=== PATIENT | female | born 1965 | race Caucasian/White ===

== ENCOUNTER → 2016-09-30 | Outpatient (CLI) | payer MEDICARE, OTHER | LOC: EMI 15:37 | DX: M51.36 Other intervertebral disc degeneration, lumbar region (principal); M96.1 Postlaminectomy syndrome, not elsewhere classified; M48.06 Spinal stenosis, lumbar region; M54.41 Lumbago with sciatica, right side; M48.04 Spinal stenosis, thoracic region; M51.24 Other intervertebral disc displacement, thoracic region; M54.6 Pain in thoracic spine; M51.34 Other intervertebral disc degeneration, thoracic region | CPT/HCPCS: 72146; 72148 ==

== ENCOUNTER → 2016-10-16 | Outpatient (CLI) | payer MEDICARE, OTHER | LOC: US 13:55 | DX: I25.10 Atherosclerotic heart disease of native coronary artery without angina pectoris (principal); I25.118 Atherosclerotic heart disease of native coronary artery with other forms of angina pectoris; E53.8 Deficiency of other specified B group vitamins; E78.2 Mixed hyperlipidemia; F41.1 Generalized anxiety disorder; G89.4 Chronic pain syndrome; I10 Essential (primary) hypertension; I73.89 Other specified peripheral vascular diseases; M13.871 Other specified arthritis, right ankle and foot; M51.36 Other intervertebral disc degeneration, lumbar region; M54.16 Radiculopathy, lumbar region; N32.81 Overactive bladder; R07.89 Other chest pain; R10.11 Right upper quadrant pain; R23.8 Other skin changes; R30.0 Dysuria; R91.8 Other nonspecific abnormal finding of lung field | CPT/HCPCS: 93925 ==

== ENCOUNTER → 2020-08-21 | Outpatient (CLI) | payer MEDICARE, OTHER ==
[~2020-08-21] MED LIST: CEFUROXIME500 MG PO
== END ==
LOC: EXRD 08-17 11:00
DX: I73.9 Peripheral vascular disease, unspecified (principal)
CPT/HCPCS: 93922; 93925

== ENCOUNTER 2020-08-24 13:11 | Emergency (ER) | payer MEDICARE, OTHER ==
[2020-08-24] MEDS ORDERED: CEFUROXIME500 MG PO (16:21)
== END 2020-08-24 16:44 | disposition home or self-care (01) ==
LOC: ER1 13:11
DX: S50.02XA Contusion of left elbow, initial encounter (principal); N39.0 Urinary tract infection, site not specified; I51.9 Heart disease, unspecified; F17.200 Nicotine dependence, unspecified, uncomplicated; Z23 Encounter for immunization; Z88.8 Allergy status to other drugs, medicaments and biological substances; W19.XXXA Unspecified fall, initial encounter; Y92.009 Unspecified place in unspecified non-institutional (private) residence as the place of occurrence of the external cause
CPT/HCPCS: 73080; 81001; 90471; 90714; 99283

== ENCOUNTER → 2020-09-06 | Outpatient (CLI) | payer MEDICARE, OTHER | LOC: RAD 14:50 | DX: M25.561 Pain in right knee (principal); R93.6 Abnormal findings on diagnostic imaging of limbs | CPT/HCPCS: 73562 ==

== ENCOUNTER → 2020-11-30 | Outpatient (CLI) | payer MEDICARE, OTHER ==
[2020-11-30 11:44] LABS: HEMOGLOBIN 13.2 gm/dl (12.3-15.3); RED BLOOD COUNT 4.33 M/UL (4.00-5.10); WHITE BLOOD COUNT 7.9 K/UL (4.5-11.0)
[2020-11-30 12:00] LABS: BUN/CREATININE RATIO 17 (0-10)
[2020-12-02 16:09] LABS: CHOLESTEROL, TOTAL 150 mg/dL (100-199); HDL-C 48 mg/dL (>39); HDL-P (TOTAL) 38.1 umol/L (>=30.5); LARGE HDL-P 5.1 umol/L (>=4.8); LDL-C 75 mg/dL (0-99); LDL-P 1001 nmol/L (<1000); LP-IR SCORE 87 (<=45); SMALL LDL-P 519 nmol/L (<=527); TRIGLYCERIDES 158 mg/dL (0-149); VLDL SIZE 67.6 nm (<=46.6)
== END ==
LOC: LAB 10:33
PROVIDERS: Emergency Medicine
DX: I10 Essential (primary) hypertension (principal); E78.2 Mixed hyperlipidemia; N32.81 Overactive bladder; R53.83 Other fatigue; R59.0 Localized enlarged lymph nodes
CPT/HCPCS: 36415; 80053; 80061; 83704; 84443; 84550; 85025

== ENCOUNTER → 2020-12-29 | Outpatient (CLI) | payer MEDICARE, OTHER | LOC: EXRD 14:20 | DX: M79.604 Pain in right leg (principal); M71.21 Synovial cyst of popliteal space [Baker], right knee | CPT/HCPCS: 93971 ==

== ENCOUNTER → 2021-03-27 | Outpatient (CLI) | payer MEDICARE, OTHER | LOC: RAD 07:53 | DX: I25.10 Atherosclerotic heart disease of native coronary artery without angina pectoris (principal); I10 Essential (primary) hypertension; F41.1 Generalized anxiety disorder; F33.0 Major depressive disorder, recurrent, mild; J20.9 Acute bronchitis, unspecified; R06.02 Shortness of breath; R91.8 Other nonspecific abnormal finding of lung field; Z86.16 Personal history of COVID-19; Z88.8 Allergy status to other drugs, medicaments and biological substances | CPT/HCPCS: 71046 ==

== ENCOUNTER → 2021-04-27 | Outpatient (CLI) | payer MEDICARE, OTHER | LOC: RAD 11:49 | DX: J18.9 Pneumonia, unspecified organism (principal); I25.10 Atherosclerotic heart disease of native coronary artery without angina pectoris; I10 Essential (primary) hypertension; E78.2 Mixed hyperlipidemia; M51.36 Other intervertebral disc degeneration, lumbar region; I73.89 Other specified peripheral vascular diseases; R91.8 Other nonspecific abnormal finding of lung field | CPT/HCPCS: 71046 ==

== ENCOUNTER → 2021-08-31 | Outpatient (CLI) | payer MEDICARE, OTHER | LOC: LAB 08:12 | DX: M79.604 Pain in right leg (principal); Z88.5 Allergy status to narcotic agent; Z88.6 Allergy status to analgesic agent | CPT/HCPCS: 36415; 85379 ==

== ENCOUNTER → 2021-09-06 | Outpatient (CLI) | payer MEDICARE | LOC: KOH-I 13:17 | DX: M79.661 Pain in right lower leg (principal) | CPT/HCPCS: 93970 ==

== ENCOUNTER → 2021-11-29 | Outpatient (CLI) | payer MEDICARE, OTHER ==
[2021-11-29 09:23] LABS: BUN/CREATININE RATIO 16 (0-10)
== END ==
LOC: LAB 08:23
PROVIDERS: Emergency Medicine
DX: I10 Essential (primary) hypertension (principal); E78.2 Mixed hyperlipidemia; E53.9 Vitamin B deficiency, unspecified
CPT/HCPCS: 36415; 80053

== ENCOUNTER → 2022-01-28 | Outpatient (CLI) | payer MEDICARE, OTHER | LOC: EXRD 12:54 | DX: M81.0 Age-related osteoporosis without current pathological fracture (principal) | CPT/HCPCS: 77080 ==

== ENCOUNTER → 2022-02-08 | Outpatient (CLI) | payer MEDICARE, OTHER ==
[2022-02-08 09:54] LABS: HEMOGLOBIN 13.1 gm/dl (12.3-15.3); RED BLOOD COUNT 4.36 M/UL (4.00-5.10); WHITE BLOOD COUNT 9.9 K/UL (4.5-11.0)
[2022-02-10 11:10] LABS: CHOLESTEROL, TOTAL 155 mg/dL (100-199); HDL SIZE 9.3 nm (>=9.2); HDL-C 53 mg/dL (>39); HDL-P (TOTAL) 34.1 umol/L (>=30.5); LARGE HDL-P 9.1 umol/L (>=4.8); LARGE VLDL-P 10.4 nmol/L (<=2.7); LDL SIZE 21.2 nm (>20.5); LDL SIZE 21.2 nm (>=20.8); LDL-C 74 mg/dL (0-99); LDL-P 1212 nmol/L (<1000); LP-IR SCORE 57 (<=45); SMALL LDL-P 558 nmol/L (<=527); TRIGLYCERIDES 162 mg/dL (0-149); VLDL SIZE 60.6 nm (<=46.6)
== END ==
LOC: LAB 09:35
PROVIDERS: Emergency Medicine
DX: Z00.01 Encounter for general adult medical examination with abnormal findings (principal); J30.9 Allergic rhinitis, unspecified; I25.10 Atherosclerotic heart disease of native coronary artery without angina pectoris; F41.1 Generalized anxiety disorder; E78.2 Mixed hyperlipidemia; Z88.8 Allergy status to other drugs, medicaments and biological substances; Z88.6 Allergy status to analgesic agent
CPT/HCPCS: 36415; 80053; 80061; 83704; 84443; 84550; 85025

== ENCOUNTER → 2022-03-01 | Outpatient (CLI) | payer MEDICARE, OTHER | LOC: EXRD 09:32 | DX: R10.9 Unspecified abdominal pain (principal) | CPT/HCPCS: 76775 ==